=== PATIENT | female | born 2000 | race Caucasian/White ===

== ENCOUNTER 2020-04-08 16:10 | Outpatient (REF) | payer OTHER, SELFPAY | END 2020-04-08 16:11 | disposition home or self-care (01) | LOC: HO.LNP 16:10 | PROVIDERS: Visit Provider Hospitalist | DX: Z20.828 Contact with and (suspected) exposure to other viral communicable diseases (principal); R21 Rash and other nonspecific skin eruption | CPT/HCPCS: U0003 ==

== ENCOUNTER 2020-05-09 | Outpatient (REF) | payer OTHER, SELFPAY | END 2020-05-09 00:01 | disposition home or self-care (01) | LOC: HO.LAB | PROVIDERS: Visit Provider Obstetrics & Gynecology | DX: Z01.419 Encounter for gynecological examination (general) (routine) without abnormal findings (principal) | CPT/HCPCS: 87491; 87591 ==

== ENCOUNTER → 2020-05-09 10:12 | Outpatient (BNVA) | payer OTHER, SELFPAY | PROVIDERS: Visit Provider Obstetrics & Gynecology | DX: Z76.89 Persons encountering health services in other specified circumstances (principal) ==

== ENCOUNTER 2021-03-15 09:24 | Outpatient (REF) | payer OTHER, SELFPAY ==
[2021-03-15 12:20] LABS: Syphilis Screen Nonreactive (Nonreactive)
[2021-03-16 04:44] LABS: HIV AB/AG Nonreactive (Nonreactive); HIV Num 1 0.22 S/CO (0.00-0.99); ~HepC Num1 0.05 S/CO (0.00-0.79); ~Hepatitis C Antibody Nonreactive (Nonreactive)
[2021-03-16 04:58] LABS: HBS Num1 > 1000.00 mIU/mL (0-7.99); ~Hepatitis B Surface Antibody REACTIVE (Nonreactive)
[2021-03-17 09:32] LABS: Herpes Simplex Type 1 IgG <0.90 index; Herpes Simplex Type 2 IgG <0.90 index
== END 2021-03-15 09:25 | disposition home or self-care (01) ==
LOC: HO.HMGCLDS 09:24
PROVIDERS: PCP Internal Medicine; Visit Provider Internal Medicine
DX: Z01.84 Encounter for antibody response examination (principal); Z11.4 Encounter for screening for human immunodeficiency virus [HIV]; Z11.59 Encounter for screening for other viral diseases; Z11.3 Encounter for screening for infections with a predominantly sexual mode of transmission
CPT/HCPCS: 36415; 86695; 86696; 86706; 86780; 86803; 87389

== ENCOUNTER 2021-04-25 11:18 | Outpatient (REF) | payer OTHER, SELFPAY | END 2021-04-25 11:19 | disposition home or self-care (01) | LOC: HO.LNP 11:18 | PROVIDERS: Visit Provider Physician Assistant Medical | DX: J02.9 Acute pharyngitis, unspecified (principal) | CPT/HCPCS: 87071; 87147 ==

== ENCOUNTER 2021-05-10 09:26 | Outpatient (REF) | payer OTHER, SELFPAY ==
[2021-05-10 11:29] LABS: HIV AB/AG Nonreactive (Nonreactive); HIV Num 1 0.14 S/CO (0.00-0.99); Hepatitis B Surface Antigen Negative (Negative); ~HepC Num1 0.08 S/CO (0.00-0.79); ~Hepatitis C Antibody Nonreactive (Nonreactive)
[2021-05-10 11:42] LABS: Syphilis Screen Nonreactive (Nonreactive)
[2021-05-10 16:18] LABS: CT PCR NOT DETECTED (Not Detect.); NG PCR NOT DETECTED (Not Detect.)
[2021-05-11 11:05] LABS: BV Int Neg Control Negative (Negative); BV Int Pos Control Positive (Positive)
== END 2021-05-10 09:27 | disposition home or self-care (01) ==
LOC: HO.LAB 09:26
PROVIDERS: PCP Internal Medicine; Visit Provider Obstetrics & Gynecology
DX: Z01.419 Encounter for gynecological examination (general) (routine) without abnormal findings (principal); Z11.3 Encounter for screening for infections with a predominantly sexual mode of transmission; Z11.8 Encounter for screening for other infectious and parasitic diseases; Z11.51 Encounter for screening for human papillomavirus (HPV); Z11.59 Encounter for screening for other viral diseases; Z11.4 Encounter for screening for human immunodeficiency virus [HIV]; F32.A Depression, unspecified; F41.9 Anxiety disorder, unspecified; Z97.5 Presence of (intrauterine) contraceptive device
CPT/HCPCS: 36415; 86780; 86803; 87340; 87389; 87480; 87491; 87510; 87591; 87660; 88142

== ENCOUNTER 2022-01-19 08:37 | Outpatient (REF) | payer OTHER, SELFPAY ==
--- NOTE | ~2022-01-19 | XR_ITS ---
EXAMINATION: XR WRIST, RIGHT CLINICAL INFORMATION: Contusion of the right wrist COMPARISON: None TECHNIQUE: 4 views of the right wrist FINDINGS: No fracture or dislocation. Alignment is maintained. Joint spaces are maintained. The soft tissues are unremarkable. XR/XR wrist RT w scaphoid IMPRESSION: Normal appearance of the right wrist.
== END 2022-01-19 08:38 | disposition home or self-care (01) ==
LOC: HO.HMGCX 08:37
PROVIDERS: PCP Internal Medicine; Visit Provider Internal Medicine
DX: S60.211A Contusion of right wrist, initial encounter (principal)
CPT/HCPCS: 73110

== ENCOUNTER 2022-03-28 11:34 | Outpatient (REF) | payer OTHER, SELFPAY ==
--- NOTE | ~2022-03-28 | XR_ITS ---
EXAMINATION: XR HAND, LEFT CLINICAL INFORMATION: Pain. COMPARISON: None TECHNIQUE: PA, lateral, and oblique views of the left hand. FINDINGS: The bones and soft tissues are normal. No fracture. Alignment is anatomic. Joint spaces are maintained. No erosions or soft tissue calcifications. XR/XR hand LT min 3V IMPRESSION: Normal left hand.
[2022-03-28 14:09] LABS: C Reactive Protein 0.02 mg/dL (< or = 0.50); Rheumatoid Factor < 15.0 IU/mL (<15.0)
[2022-03-28 14:29] LABS: Erythrocyte Sedimentation Rate 2 MM/HR (0-20)
[2022-03-30 16:11] LABS: Cyclic Citrullinated Peptide <16 UNITS
== END 2022-03-28 11:35 | disposition home or self-care (01) ==
LOC: HO.10HDL 11:34
PROVIDERS: PCP Internal Medicine; Visit Provider Internal Medicine Rheumatology
DX: M25.531 Pain in right wrist (principal); M79.642 Pain in left hand; M25.50 Pain in unspecified joint; R29.898 Other symptoms and signs involving the musculoskeletal system; Z79.899 Other long term (current) drug therapy
CPT/HCPCS: 36415; 73130; 85652; 86140; 86200; 86431; 99202

== ENCOUNTER 2022-05-09 07:20 | Outpatient (REF) | payer OTHER, SELFPAY ==
--- NOTE | ~2022-05-09 | MR_ITS ---
EXAMINATION: MR WRIST WITHOUT CONTRAST, RIGHT CLINICAL INFORMATION: M25.531 - Pain in right wrist. COMPARISON: Radiograph dated 03/28/2022. TECHNIQUE: MRI of the wrist was performed using routine sequences on a high-field scanner. FINDINGS: LIGAMENTS/TFCC: Triangular fibrocartilage complex is intact. Scapholunate and lunotriquetral ligaments are normal. Normal volar ulnocarpal ligaments. BONES AND ARTICULAR CARTILAGE: Intact. No fractures or contusions. Marrow signal is normal. Articular cartilage is well preserved. JOINT FLUID: No effusion or synovitis. MUSCLES AND TENDONS: Intact. No tendon tears or tenosynovitis. Normal muscle signal. NERVES: Carpal tunnel and Guyon's canal are unremarkable. SUPERFICIAL SOFT TISSUES: Arising from the dorsal band of the scapholunate ligament, there is a 1 x 0.4 x 0.8 cm ganglion cyst. This likely corresponds to the palpable abnormality in the region of the patient's symptoms. MR/MR wrist RT wo con IMPRESSION: A 1 cm ganglion cyst arising from the dorsal band of the scapholunate ligament. No internal derangement or otherwise acute abnormalities in the right wrist.
== END 2022-05-09 07:21 | disposition home or self-care (01) ==
LOC: HO.MRI 07:20
PROVIDERS: Visit Provider Internal Medicine Rheumatology
DX: M25.531 Pain in right wrist (principal)
CPT/HCPCS: 73221

== ENCOUNTER 2022-05-23 10:06 | Outpatient (REF) | payer OTHER, SELFPAY ==
[2022-05-23 11:19] LABS: MANUAL DIFF FLAG NO
[2022-05-23 11:26] LABS: Basophils Absolute Auto 0.1 X10*3/uL (0.0-0.2); Basophils Percent Auto 0.4 % (0-2); Eosinophils Absolute Auto 0.4 X10*3/uL (0.0-0.4); Eosinophils Percent Auto 3.5 % (0-4); Hematocrit 42.4 % (37.0-47.0); Hemoglobin 14.6 g/dl (12.0-16.0); Imm Gran Abs Auto 0.04 X10*3/uL (0.00-0.03); Imm Gran Pct Auto 0.3 % (0.0-0.4); Lymphocytes Absolute Auto 1.6 X10*3/uL (1.2-4.9); Mean Corpuscular HGB Conc 34.4 g/dl (31.0-35.0); Mean Corpuscular Hemoglobin 30.6 pg (27.0-33.0); Mean Corpuscular Volume 88.9 fL (80.0-98.0); Mean Platelet Volume 10.4 fL (9.4-12.3); Monocytes Absolute Auto 0.7 X10*3/uL (0.1-1.2); Monocytes Percent Auto 5.6 % (2-11); Neutrophils Absolute Auto 9.4 x10*3/uL (2.0-8.3); Neutrophils Percent Auto 77.2 % (45-73); Platelet Count 319 X10*3/uL (160-400); Red Blood Count 4.77 X10*6/uL (4.20-5.50); Red Cell Distribution Width 11.6 % (11.0-16.0); White Blood Count 12.2 X10*3/uL (4.8-10.8)
[2022-05-23 12:32] LABS: Alanine Aminotransferase 7 U/L (0-31); Albumin Level 4.5 g/dL (3.5-5.0); Alkaline Phosphatase 55 U/L (39-117); Anion Gap 12 (12-20); Aspartate Amino Transferase 13 U/L (5-31); Bilirubin Total 0.9 mg/dL (0.0-1.0); Blood Urea Nitrogen 10 mg/dL (9-16); Calcium 9.4 mg/dL (8.4-10.2); Carbon Dioxide 26 mmol/L (22-29); Chloride 106 mmol/L (96-108); Cholesterol 131 mg/dL; Estimated Glomerular Filt Rate > 60; Glucose Fasting 95 mg/dL (60-99); HDL Cholesterol 47 mg/dL; LDL Cholesterol Calculated 69 mg/dl; Potassium 3.9 mmol/L (3.3-5.1); Sodium 140 mmol/L (135-145); TSH reflex Free T4 1.55 uIU/mL (0.32-4.0); Total Protein 6.5 g/dL (6.5-8.0); Triglycerides 76 mg/dL
[2022-05-29 16:03] LABS: Vitamin D 25-OH, D2 <4 ng/mL; Vitamin D 25-OH, D3 14 ng/mL; Vitamin D 25-OH, Total 14 ng/mL (30-100)
== END 2022-05-23 10:07 | disposition home or self-care (01) ==
LOC: HO.HMGCLDS 10:06
PROVIDERS: PCP Internal Medicine; Visit Provider Internal Medicine
DX: Z00.01 Encounter for general adult medical examination with abnormal findings (principal); J30.2 Other seasonal allergic rhinitis; K21.9 Gastro-esophageal reflux disease without esophagitis; M79.642 Pain in left hand; F33.9 Major depressive disorder, recurrent, unspecified
CPT/HCPCS: 36415; 80053; 80061; 82306; 84443; 85025

== ENCOUNTER 2022-06-05 09:56 | Outpatient (REF) | payer OTHER, SELFPAY ==
[2022-06-05 14:16] LABS: CT PCR NOT DETECTED (Not Detect.); NG PCR NOT DETECTED (Not Detect.)
== END 2022-06-05 09:57 | disposition home or self-care (01) ==
LOC: HO.LNP 09:56
PROVIDERS: PCP Internal Medicine; Visit Provider Obstetrics & Gynecology
DX: Z30.432 Encounter for removal of intrauterine contraceptive device (principal); Z32.02 Encounter for pregnancy test, result negative; N93.9 Abnormal uterine and vaginal bleeding, unspecified
CPT/HCPCS: 0353U; 58301; 81025; 99212

== ENCOUNTER 2022-06-12 09:54 | Outpatient (REF) | payer OTHER, SELFPAY ==
[2022-06-12 12:06] LABS: Hematocrit 44.6 % (37.0-47.0); Hemoglobin 15.1 g/dl (12.0-16.0); Mean Corpuscular HGB Conc 33.9 g/dl (31.0-35.0); Mean Corpuscular Hemoglobin 30.4 pg (27.0-33.0); Mean Corpuscular Volume 89.7 fL (80.0-98.0); Mean Platelet Volume 9.7 fL (9.4-12.3); Platelet Count 372 X10*3/uL (160-400); Red Blood Count 4.97 X10*6/uL (4.20-5.50); White Blood Count 7.6 X10*3/uL (4.8-10.8)
[2022-06-12 13:04] LABS: HCG Quantitative < 2 mIU/mL; TSH reflex Free T4 2.28 uIU/mL (0.32-4.0)
== END 2022-06-12 09:55 | disposition home or self-care (01) ==
LOC: HO.LAB 09:54
PROVIDERS: Absent Provider Obstetrics & Gynecology; PCP Internal Medicine; Visit Provider Orthopaedic Surgery
DX: M67.431 Ganglion, right wrist (principal); N93.9 Abnormal uterine and vaginal bleeding, unspecified
CPT/HCPCS: 36415; 84443; 84702; 85027; 99202

== ENCOUNTER 2022-06-22 14:56 | Outpatient (REF) | payer OTHER, SELFPAY ==
--- NOTE | ~2022-06-22 | US_ITS ---
EXAMINATION: US PELVIS CLINICAL INFORMATION: Abnormal uterine and vaginal bleeding. COMPARISON: None. TECHNIQUE: Ultrasound of the pelvis is performed using both transabdominal and transvaginal transducers along with Doppler. Transvaginal imaging is performed due to inadequate visualization transabdominally. FINDINGS: Uterus: The uterus is anteverted, anteflexed and measures 7.5 x 2.3 x 3.1 cm. The double wall endometrial thickness is 0.3-0.5 cm. The uterus is smooth in contour and has normal myometrial echogenicity. There is a hypoechoic lesion in the lower uterine segment measuring 0.6 x 0.7 x 0.6 cm. There are small nabothian cysts in the pelvis. Adnexa: Both ovaries are visualized. There is normal color flow to the adnexa. There is no ovarian torsion. There is no pelvic ascites or fluid collection. Right ovary measures 2.8 x 1.6 x 3.1 cm and volume 3.1 mL. There are multiple small cysts visualized Left ovary measures 2.8 x 2.3 x 2.4 cm and volume 8.1 mL. There are multiple anechoic cysts. There is an exophytic cyst noted measuring 1.2 x 0.7 x 0.9 cm. There are prominent vessels visualized in the adnexa likely venous congestion. There is small amount of free fluid in the cul-de-sac. US/US pelvic and transvaginal IMPRESSION: 1. Small uterine fibroid in the lower uterine segment. The uterus is otherwise unremarkable. 2. Small nabothian cysts in the pelvis. 3. Multiple bilateral ovarian cysts; ? polycystic disease. 4. Small amount of free fluid in the cul-de-sac. 5. Prominent vessels in the adnexa likely venous congestion.
== END 2022-06-22 14:57 | disposition home or self-care (01) ==
LOC: HO.US 14:56
PROVIDERS: PCP Internal Medicine; Visit Provider Obstetrics & Gynecology
DX: N93.9 Abnormal uterine and vaginal bleeding, unspecified (principal)
CPT/HCPCS: 76830; 76856

== ENCOUNTER 2022-06-26 11:42 | Outpatient (REF) | payer OTHER, SELFPAY | END 2022-06-26 11:43 | disposition home or self-care (01) | LOC: HO.LNP 11:42 | PROVIDERS: Visit Provider Internal Medicine | DX: N30.90 Cystitis, unspecified without hematuria (principal) | CPT/HCPCS: 87086; 87088; 87186 ==

== ENCOUNTER → 2022-07-03 11:32 | Outpatient (BNVA) | payer OTHER, SELFPAY | PROVIDERS: PCP Internal Medicine; Visit Provider Orthopaedic Surgery | DX: M67.431 Ganglion, right wrist (principal) | CPT/HCPCS: 20612; 99212 ==

== ENCOUNTER 2022-07-09 09:13 | Outpatient (REF) | payer OTHER, SELFPAY ==
[2022-07-10 17:53] LABS: Prolactin 8.2 ng/mL
[2022-07-22 17:44] LABS: Testosterone, Free 4.6 pg/mL (0.1-6.4); Testosterone, Total 92 ng/dL (2-45)
== END 2022-07-09 09:14 | disposition home or self-care (01) ==
LOC: HO.LAB 09:13
PROVIDERS: PCP Internal Medicine; Visit Provider Obstetrics & Gynecology
DX: L68.0 Hirsutism (principal); N93.9 Abnormal uterine and vaginal bleeding, unspecified
CPT/HCPCS: 36415; 83498; 84146; 84402; 84403; 99212

== ENCOUNTER 2022-07-18 17:18 | Outpatient (REF) | payer OTHER, SELFPAY ==
[2022-07-18 18:42] LABS: Influenza A PCR NEGATIVE (Negative); Influenza B PCR NEGATIVE (Negative); Resp Syncy Virus RNA Qual PCR NEGATIVE (Negative); SARS COV2 PCR INHOUSE NEGATIVE (Negative)
== END 2022-07-18 17:19 | disposition home or self-care (01) ==
LOC: HO.LNP 17:18
PROVIDERS: Visit Provider Internal Medicine
DX: Z20.822 Contact with and (suspected) exposure to COVID-19 (principal); R09.89 Other specified symptoms and signs involving the circulatory and respiratory systems
CPT/HCPCS: 0241U

== ENCOUNTER 2022-07-20 11:50 | Outpatient (REF) | payer OTHER, SELFPAY ==
[2022-07-23 16:19] LABS: Transglutaminase Ab IgG <1.0 U/mL; Transglutaminase IgA <1.0 U/mL
== END 2022-07-20 11:51 | disposition home or self-care (01) ==
LOC: HO.LAB 11:50
PROVIDERS: PCP Internal Medicine; Referring Provider Internal Medicine; Visit Provider Nurse Practitioner Family
DX: R10.13 Epigastric pain (principal); K21.9 Gastro-esophageal reflux disease without esophagitis
CPT/HCPCS: 36415; 86364; 99202

== ENCOUNTER → 2022-07-23 08:57 | Outpatient (BNVA) | payer OTHER, SELFPAY | PROVIDERS: PCP Internal Medicine; Visit Provider Obstetrics & Gynecology | DX: E28.2 Polycystic ovarian syndrome (principal); F32.A Depression, unspecified; F41.9 Anxiety disorder, unspecified | CPT/HCPCS: 99212 ==

== ENCOUNTER 2022-07-27 11:43 | Outpatient (REF) | payer OTHER, SELFPAY ==
[2022-07-27 14:04] LABS: Cholesterol 165 mg/dL; HDL Cholesterol 62 mg/dL; Triglycerides 51 mg/dL
[2022-07-29 09:29] LABS: LDL Cholesterol Direct 88 mg/dL (<100)
== END 2022-07-27 11:44 | disposition home or self-care (01) ==
LOC: HO.LAB 11:43
PROVIDERS: Nurse Practitioner Family; PCP Internal Medicine; Visit Provider Obstetrics & Gynecology
DX: E28.2 Polycystic ovarian syndrome (principal); K20.90 Esophagitis, unspecified without bleeding; R10.13 Epigastric pain; K21.9 Gastro-esophageal reflux disease without esophagitis
CPT/HCPCS: 36415; 82465; 83718; 83721; 84478; 86003

== ENCOUNTER 2022-07-28 10:34 | Outpatient (REF) | payer OTHER, SELFPAY | END 2022-07-28 10:35 | disposition home or self-care (01) | LOC: HO.LAB 10:34 | PROVIDERS: Visit Provider Obstetrics & Gynecology | DX: Z13.89 Encounter for screening for other disorder (principal) ==

== ENCOUNTER 2022-07-31 09:11 | Outpatient (REF) | payer OTHER, SELFPAY ==
[2022-07-31 11:34] LABS: Glucose Fasting 79 mg/dL (60-99)
[2022-07-31 12:27] LABS: Glucose 1 Hour 134 mg/dL
[2022-07-31 13:24] LABS: Glucose 2 Hour 95 mg/dL
== END 2022-07-31 09:12 | disposition home or self-care (01) ==
LOC: HO.LAB 09:11
PROVIDERS: PCP Internal Medicine; Visit Provider Obstetrics & Gynecology
DX: E28.2 Polycystic ovarian syndrome (principal)
CPT/HCPCS: 36415

== ENCOUNTER 2022-08-10 08:28 | Outpatient (REF) | payer OTHER, SELFPAY ==
[2022-08-11 12:18] LABS: H Pylori Breath Test Negative (Negative)
== END 2022-08-10 08:29 | disposition home or self-care (01) ==
LOC: HO.LNP 08:28
PROVIDERS: PCP Internal Medicine; Referring Provider Internal Medicine; Visit Provider Nurse Practitioner Family
DX: Z11.2 Encounter for screening for other bacterial diseases (principal)
CPT/HCPCS: 83013

== ENCOUNTER → 2022-08-14 10:31 | Outpatient (BNVA) | payer OTHER, SELFPAY | PROVIDERS: PCP Internal Medicine; Visit Provider Orthopaedic Surgery | DX: M67.431 Ganglion, right wrist (principal) | CPT/HCPCS: 99212 ==